=== PATIENT | male | born 1985 | race Hispanic/Latino ===

== ENCOUNTER 2020-01-23 08:33 | Day surgery (SDC) | payer MEDICAID ==
[~2020-01-23 08:33] MED LIST: SODIUM CHLORIDE 0.9% 1000 ML 1,000 ML IV SCH
[2020-01-23] MEDS ORDERED: propofoL 200 MG/20 ML VIAL IV ONE ×2 (10:01)
[2020-01-23] MEDS ORDERED: LIDOCAINE JELLY (2%) 5 ML TOPICAL ONE (10:15)
--- NOTE | 2020-01-23 10:32 | Anesthesia Consultation ---
Anesthesia Consult and Med Hx Date of service: 01/23/20 - Airway Anesthetic Teeth Evaluation: Poor ROM Head & Neck: Adequate Mental/Hyoid Distance: Adequate Mallampati Class: Class I Intubation Access Assessment: Good - Pulmonary Exam CTA: Yes - Cardiac Exam Cardiac Exam: RRR - Pre-Operative Health Status ASA Pre-Surgery Classification: ASA2 Proposed Anesthetic Plan: MAC - Pulmonary Hx Smoking: Yes (former smoker) Hx Respiratory Symptoms: No - Cardiovascular System Hx Hypertension: No - Central Nervous System CVA: No - Endocrine Hx Renal Disease: No Hx Liver Disease: No Hx Insulin Dependent Diabetes: No Hx Non-Insulin Dependent Diabetes: No Hx Thyroid Disease: No - Other Systems Hx Obesity: No
--- NOTE | 2020-01-23 10:32 | Anesthesia Day of Surgery ---
Anesthesia Day of Surgery - Day of Surgery Patient Examined: Yes Patient H&P Reviewed: Yes Patient is NPO: Yes
--- NOTE | 2020-01-23 10:38 | Procedure Note ---
Date of procedure: 01/23/20 Pre-op diagnosis: Hematochezia Post-op diagnosis: other (Hematochezia secondary to Moderate Internal Hemorrhoid, s/p Banding x 3) Procedure: Colonoscopy/ Flex Sigmoidoscopy with banding x 3 Anesthesia: MAC Surgeon: LYNNE BEST Estimated blood loss: minimal Pathology: none Condition: stable Disposition: same day (Encourage Sitz Bath,Licocaine Gel and analgesic. Avoid aspirin and NSAID for 5 days; otherwise resume home medication and follow up in 1 to 2 weeks ([phone]).)
--- NOTE | 2020-01-23 11:30 | Operative Report ---
PROCEDURE: Colonoscopy. INDICATIONS: A 34-year-old white male who has been complaining of hematochezia. Colonoscopy was done to make sure that there was not any significant pathology accounting for his hematochezia, like colitis. DESCRIPTION OF PROCEDURE: The procedure was done after getting informed consent with MAC anesthesia. Initial rectal exam was unremarkable. Instrument was passed through the rectum onto the cecum, which was identified with the ileocecal valve and the appendiceal orifice. Visualization was fair to good. The terminal ileum was intubated, showed normal mucosa. The cecum, ascending colon, transverse colon, descending colon, and sigmoid showed normal mucosa. There was no evidence of any colon polyps, diverticular disease or colitis present. The rectum showed moderate internal hemorrhoid on the retroverted view, which may have been the cause of the patient's hematochezia. There is no bleeding associated with the colonoscopy, no complications associated with the colonoscopy. ASSESSMENT: Hematochezia secondary to moderate internal hemorrhoids, normal colon mucosa with no evidence of any colon polyps, diverticular disease or colitis present. Normal terminal ileal mucosa. PLAN: Plan is to do a flexible sigmoidoscopy with banding of the moderate internal hemorrhoids, which is the cause of the hematochezia and once the banding is done, the patient may be given some analgesics as well as lidocaine gel to use and also encouraged to take sitz baths and follow up in the office in 1-2 weeks' time. The procedure was done in the GI lab with the assistance of the GI lab team, which included ARIANA Morocho, whitney García and with the assistance of Anesthesia. JOB# [id number] SANDHYA/BEST
--- NOTE | 2020-01-23 12:03 | Post Anesthesia Evaluation ---
- Post Anesthesia Evaluation Patient Participated: Yes Airway Patent: Yes Stable Respiratory Function: Yes Nausea/Vomiting: No Temp > 96.8F: Yes Pain Manageable: Yes Adequeate Hydration: Yes Anesthesia Complications: No
--- NOTE | 2020-01-23 12:08 | Operative Report ---
PROCEDURE: Flexible sigmoidoscopy with banding x 3. INDICATIONS: A 34-year-old otherwise healthy white male who has been complaining of hematochezia. Colonoscopy showed moderate internal hemorrhoid, which was the possible cause of the patient's hematochezia. There was no evidence of any colitis or any other colon pathology present. The procedure of the flex sig with banding was done after getting informed consent. The EGD scope with the banding apparatus mounted on it was introduced through the rectum and retroflexed. Three of the largest hemorrhoids were then suctioned into the suction channel. A total of 4 bands were deployed. The first band did not take, but the other 3 did and assessed and there was no bleeding or any other complications associated with the procedure. ASSESSMENT: Hematochezia secondary to moderate internal hemorrhoids, status post banding x 3. PLAN: To treat the patient with analgesics, lidocaine gel, Sitz bath and have the patient avoid aspirin and aspirin-related products and follow up in the office in 1-2 weeks' time. The procedure was done in the GI lab with assistance of the GI lab team, which included ARIANA Morocho with assistance of Raquel olson and with assistance of anesthesia. JOB# [id number] SANDHYA/BEST
[2020-01-23] MEDS ORDERED: WATER FOR IRRIG STERILE 250 ML BOTTLE IR ONE (12:57)
[2020-01-23 14:03] VITALS: BP 122/85
[2020-01-23] MEDS ORDERED: LIDOCAINE MPF (2%) 20 MG/1 ML VIAL 5 ML ONE (21:00)
== END 2020-01-23 08:34 | disposition home or self-care (01) ==
LOC: GIO 08:33
DX: K92.1 Melena (principal); K64.8 Other hemorrhoids; K21.9 Gastro-esophageal reflux disease without esophagitis; Z98.890 Other specified postprocedural states; Z80.8 Family history of malignant neoplasm of other organs or systems; Z79.899 Other long term (current) drug therapy; Z87.891 Personal history of nicotine dependence; Z90.49 Acquired absence of other specified parts of digestive tract
CPT/HCPCS: 45378; 46221; J2704; J7030